=== PATIENT | male | born 1980 | race African-American/Black ===

== ENCOUNTER 2021-11-20 16:33 | Observation (INO) ==
[2021-11-20] MEDS ORDERED: FAMOTIDINE 20MG IV PUSH 20 MG/5 ML SYR IV STA (17:06)
[2021-11-20] MEDS ORDERED: SODIUM CHLORIDE 0.9% 1000ML 1,000 ML IV ONE (17:06)
--- NOTE | 2021-11-20 17:11 | Emergency Department Note ---
Impression & Plan Incarcerated left inguinal hernia, Recurrent inguinal hernia of left side with obstruction ED Provider Note NAME: FABIOLA REYNA AGE: 41 SEX: M ARRIVES VIA: Walk-In INFORMANT: Patient ED PROVIDER(S): Erick Bonner MD CHIEF COMPLAINT: Abdominal pain, Referred. PLAN: Disposition: Admit MEDICAL DECISION MAKING: The patient is a pleasant 41-year-old gentleman, current correction inmate at [facility], with a past medical history of a left inguinal hernia repair in 2016 per his report who presents to the emergency department for evaluation of persistent abdominal pain and nausea with constipation that has evolved over the past several weeks. Patient reports couple weeks ago he had fevers with nausea and vomiting but tested negative for COVID-19. He reports since his illness he has had continued burning sensation which he attributes to acid reflux. He has been started on Pepcid which he reports relieves his pain but notices when he stops taking it that the pain returns. He reports he has been moving his bowels at most every 4 days and prior to the onset of the symptoms over the past month he used to go daily. He denies any cough, congestion, chest pain, shortness of breath. On arrival the patient is well-appearing in no acute distress, afebrile stable vital signs. His abdomen is benign. He has a large left inguinal hernia that is soft and nontender but unable to be reduced. WBC, H/H and platelets within normal limits. Chemistry without metabolic acidosis. Electrolytes and LFTs unremarkable. Lipase is not elevated. CT of the abdomen pelvis demonstrates evidence of large bowel obstruction secondary to the patient's left hernia. I did reevaluate the patient who denies any significant pain at this time. I did attempt to reduce the hernia with the patient in Trendelenburg position with moderate success though unable to completely reduce the hernia. Case was discussed with Dr. De La Paz, general surgery on-call. Appreciate consultation. Upon his evaluation plan will be for admission for or tomorrow. Triage Nursing notes reviewed and agree them. Prior medical records reviewed Vital Signs: reviewed and remarkable for no significant abnormalities Differential diagnosis: Appendicitis, testicular torsion, infections, diverticulitis, UTI, obstruction, mesenteric ischemia, aortic pathology, inflammatory bowel disease, renal colic, PUD, pancreatitis, biliary pathology, hernia, volvulus, constipation, as well as other pathologies. ER treatment provided: See below. Diagnostics interpreted by me: Cardiac Monitoring: An order for continuous cardiac monitoring was placed and demonstrated normal sinus rhythm, 64 bpm, no ectopy. Laboratory studies: See below Imaging studies: See below Consultation(s): Dr. De La Paz, general surgery on-call. HPI: The patient is a pleasant 41-year-old gentleman, current correction inmate at [facility], with a past medical history of a left inguinal hernia repair in 2016 per his report who presents to the emergency department for evaluation of persistent abdominal pain and nausea with constipation that has evolved over the past several weeks. Patient reports couple weeks ago he had fevers with nausea and vomiting but tested negative for COVID-19. He reports since his illness he has had continued burning sensation which he attributes to acid reflux. He has been started on Pepcid which he reports relieves his pain but notices when he stops taking it that the pain returns. He reports he has been moving his bowels at most every 4 days and prior to the onset of the symptoms over the past month he used to go daily. He denies any cough, congestion, chest pain, shortness of breath. ROS: See above HPI for pertinent positives & negatives. A total of 10 systems reviewed and were otherwise negative. VITALS:See Below PHYSICAL EXAMINATION: GENERAL: Awake, alert, well-appearing, in no distress HENT: Normocephalic, atraumatic. Oropharynx unremarkable. EYES: Normal conjunctiva. Sclera non-icteric. NECK: Supple. No nuchal rigidity. FROM. No JVD. RESPIRATORY: Clear to auscultation. CARDIAC: Regular rate, normal rhythm. Extremities warm and well perfused. Pulses equal. ABDOMEN: Soft, non-distended. No tenderness to palpation. No rebound or guarding. Large left inguinal hernia that is soft and nontender but unable to be reduced. RECTAL: Deferred. MUSCULOSKELETAL: Chest examination reveals no tenderness. The back is symmetrical on inspection without obvious abnormality. There is no CVA tenderness to palpation. No joint edema. LOWER EXTREMITIES: Calves are equal size bilaterally and non-tender. No edema. No discoloration. NEURO: Normal sensorium. No sensory or motor deficits noted. SKIN: No rash or jaundice noted. Erick Bonner MD Past Med/Surg History Medical History Inguinal hernia Surgical History H/O inguinal hernia repair Family History Other Family history non-contributory Social History Smoking Status: Former smoker Feels Safe at Home: Yes Allergies Allergies Allergy/AdvReac Type Severity Reaction Status Date / Time ampicillin Allergy Mild childhood Verified 11/20/21 17:52 reactions Home Meds Home Medications Medication Instructions Recorded Confirmed famotidine 20 mg tablet 20 mg PO DAILY 11/20/21 11/20/21 Results & Data (ED) Vital Signs Vital Signs - 24 hr 11/20/21 16:40 11/20/21 17:06 11/20/21 19:29 Temperature 36.4 C L Temperature Source Oral Pulse Rate 64 Pulse Rate [Right Finger] 58 L Pulse Rhythm Regular Pulse Strength Normal Respiratory Rate 20 18 Respiratory Effort / Characteristics Non-Labored Spontaneous Non-Labored Spontaneous Respiratory Depth Normal Normal Respiratory Pattern Regular Regular Blood Pressure 161/105 H Blood Pressure [Right Arm] 165/90 H Blood Pressure Mean 123 Blood Pressure Mean [Right Arm] 115 Blood Pressure Position Sitting Blood Pressure Position [Right Arm] Lying Pulse Oximetry 98 97 96 Oxygen Delivery Method Room Air Room Air Room Air Sepsis Recent Fever Within 48 Hours No Sepsis New/Unexplained Change in Mental Status No Sepsis Action Taken by Nursing No Action Required 11/20/21 21:00 11/20/21 23:05 Temperature Temperature Source Pulse Rate Pulse Rate [Right Finger] 60 50 L Pulse Rhythm Pulse Strength Respiratory Rate 18 18 Respiratory Effort / Characteristics Non-Labored Spontaneous Non-Labored Spontaneous Respiratory Depth Normal Normal Respiratory Pattern Regular Regular Blood Pressure Blood Pressure [Right Arm] 134/75 125/71 Blood Pressure Mean Blood Pressure Mean [Right Arm] 94 89 Blood Pressure Position Blood Pressure Position [Right Arm] Lying Lying Pulse Oximetry 98 98 Oxygen Delivery Method Room Air Room Air Sepsis Recent Fever Within 48 Hours Sepsis New/Unexplained Change in Mental Status Sepsis Action Taken by Nursing Laboratory Data Attestation: I reviewed the patient's lab results. Result diagrams: 11/20/21 17:01 11/20/21 17:01 Lab Results 03/10/22 03/10/22 03/10/22 Range/Units 17:01 17:01 21:20 WBC 6.82 (4.8-10.8) K/uL RBC 4.61 L (4.7-6.1) M/uL Hgb 15.0 (14.0-18.0) g/dL Hct 43.5 (42-52) % MCV 94.4 (80-100) fL MCH 32.5 (25-34) pg MCHC 34.5 (32-36) g/dL RDW Std Deviation 42.6 (36.4-46.3) fL RDW Coeff of Denia 12.4 (11.5-14.5) % Plt Count 309 (130-400) K/uL MPV 8.6 (7.4-10.4) fL Immature Gran % (Auto) 0.1 % Neut % (Auto) 56.4 % Lymph % (Auto) 34.3 % Mower % (Auto) 8.8 % Eos % (Auto) 0.3 % Baso % (Auto) 0.1 % Neut # (Auto) 3.84 (1.4-6.5) K/uL Lymph # (Auto) 2.34 (1.2-3.4) K/uL Mower # (Auto) 0.60 H (0.11-0.59) K/uL Eos # (Auto) 0.02 (0-0.5) K/uL Baso # (Auto) 0.01 (0-0.2) K/uL Immature Gran # (Auto) 0.01 (0.00-0.02) K/uL Sodium 138 (136-145) mmol/L Potassium 4.0 (3.5-5.1) mmol/L Chloride 105 (98-107) mmol/L Carbon Dioxide 28 (21-32) mmol/L Anion Gap 5 (3-11) BUN 14 (6-23) mg/dl Creatinine 1.23 (0.6-1.4) mg/dl Est Cr Clr Drug Dosing 103.5 ml/min Est GFR ( Amer) 85.2 ml/min Est GFR (Non-Af Amer) 73.5 ml/min BUN/Creatinine Ratio 11.4 (10-20) Glucose 91 (70-99(Fasting)) mg/dl Calcium 8.7 (8.5-10.1) mg/dl Total Bilirubin 0.3 (0.2-1.0) mg/dl Direct Bilirubin 0.1 (0-0.2) mg/dl AST 12 L (13-39) U/L ALT 32 (7-52) U/L Alkaline Phosphatase 64 (34-104) U/L Total Protein 6.7 (6.0-8.3) gm/dl Albumin 4.2 (3.4-5.0) gm/dl Globulin 2.5 (2.5-4.0) gm/dl Albumin/Globulin Ratio 1.7 (0.9-2) Lipase 14 (11-82) U/L SARS-CoV-2, RNA, NAAT NEGATIVE (NEGATIVE) Administered Medications Discontinued Medications Sodium Chloride (Nss 1000ml) 1,000 mls @ 999 mls/hr IV .Q1H1M ONE Stop: 11/20/21 18:06 Last Infusion: 11/20/21 18:33 Dose: 0 mls/hr Documented by: [id number] Admin: 11/20/21 17:31 Dose: 999 mls/hr Documented by: [id number] Famotidine (Pepcid 20mg Iv Push) 20 mg in 5 mls @ 2.5 mls/min IV NOW STA Stop: 11/20/21 17:07 Last Admin: 11/20/21 17:31 Dose: 2.5 mls/min Documented by: [id number] Ioversol (Optiray 320 100ml) 95 ml IV ONCE ONE Stop: 11/20/21 19:07 Last Admin: 11/20/21 19:06 Dose: 1 ml Documented by: [id number] Imaging Data Radiologist's Impression: Abdomen/Pelvis CT 11/20/21 17:[address] WITH IV CONTRAST CT DOSE: 628.89 mGy.cm HISTORY: Generalized abdominal pain, nausea, constipation TECHNIQUE: Multiaxial CT images of the abdomen and pelvis were performed following the use of intravenous contrast. A dose lowering technique was utilized adhering to the principles of ALARA. COMPARISON STUDY: None. FINDINGS: The lung bases are clear. No pneumoperitoneum. No pneumatosis. No fractures within the visualized osseous structures. There is a left inguinal hernia containing a segment of the proximal sigmoid colon. The colon proximal to this hernia is dilated and filled with gas and fluid. Therefore, this likely represents a transition point for the large bowel obstruction. There appears a mild edema/inflammatory change within the decompressed segment of proximal sigmoid colon within the left inguinal hernia. This is likely due to the incarcerated hernia. Early strangulation is considered less likely but not entirely excluded. Therefore, surgical consultation recommended. The liver, gallbladder, pancreas, spleen, adrenal glands, and right kidney are unremarkable. There is a 9 mm hypodense lesion within the left kidney which is technically too small to characterize but favors a cyst. The main portal vein is patent. A few mildly distended gas and fluid-filled loops of small bowel. This is also likely secondary to the large bowel obstruction. The major mesenteric vessels appear patent. No retroperitoneal lymphadenopathy. Normal caliber abdominal aorta. IMPRESSION: 1. Large bowel obstruction secondary to a left inguinal hernia which contains a short segment of the proximal sigmoid colon. 2. There appears a mild edema/inflammatory change within the decompressed segment of proximal sigmoid colon within the left inguinal hernia. This is lik néstor due to the incarcerated hernia. Early strangulation is considered less likely but not entirely excluded. Therefore, surgical consultation recommended. ACT 112: Negative or not required by law. Electronically signed by: Tim Babb M.D. 11/20/2021 7:23 PM Discharge Plan Visit Data Chief Complaint: GI Assessment Stated Complaint: STOMACH ISSUES, "ACID BUILDUP" BLOATING ED Provider: Erick Bonner Discharge Problem: Incarcerated left inguinal hernia, Recurrent inguinal hernia of left side with obstruction Forms Stand Alone Forms: Secure Command Prescriptions Prescriptions: No Action famotidine 20 mg Tablet 20 mg PO DAILY RF: 0 Referrals Referrals: Kan SANCHES [Primary Care Provider] -
[2021-11-20 17:14] LABS: Basophils # (auto) 0.01 K/uL (0-0.2); Basophils % (auto) 0.1 %; Eosinophils # (auto) 0.02 K/uL (0-0.5); Eosinophils % (auto) 0.3 %; Hematocrit (blood only) 43.5 % (42-52); Immature Granulocytes # (auto) 0.01 K/uL (0.00-0.02); Immature Granulocytes % (auto) 0.1 %; Lymphocytes # (auto) 2.34 K/uL (1.2-3.4); Lymphocytes % (auto) 34.3 %; Mean Corpuscular Hemoglobin 32.5 pg (25-34); Mean Corpuscular Hgb Conc 34.5 g/dL (32-36); Mean Corpuscular Volume 94.4 fL (80-100); Mean Platelet Volume 8.6 fL (7.4-10.4); Monocytes % (auto) 8.8 %; Neutrophils # (auto) 3.84 K/uL (1.4-6.5); Neutrophils % (auto) 56.4 %; Platelet Count 309 K/uL (130-400); RDW Coefficient of Variation 12.4 % (11.5-14.5); RDW Standard Deviation 42.6 fL (36.4-46.3); Red Blood Count 4.61 M/uL (4.7-6.1); White Blood Count 6.82 K/uL (4.8-10.8)
[2021-11-20 18:43] LABS: Albumin Globulin Ratio 1.7 (0.9-2); Albumin Level 4.2 gm/dl (3.4-5.0); BUN Creatinine Ratio 11.4 (10-20); Bilirubin Direct 0.1 mg/dl (0-0.2); Bilirubin,Total 0.3 mg/dl (0.2-1.0); Calcium 8.7 mg/dl (8.5-10.1); Creatinine Clr Calc Pharmacy 103.5 ml/min; Est GFR (African American) 85.2 ml/min; Est GFR (Non-African American) 73.5 ml/min; Globulin 2.5 gm/dl (2.5-4.0); Total Protein 6.7 gm/dl (6.0-8.3)
[2021-11-20] MEDS ORDERED: OPTIRAY 320 100ml IV ONE (19:06)
--- NOTE | 2021-11-20 19:24 | CT Scan Report ---
ABDOMEN AND PELVIS CT WITH IV CONTRAST CT DOSE: 628.89 mGy.cm HISTORY: Generalized abdominal pain, nausea, constipation TECHNIQUE: Multiaxial CT images of the abdomen and pelvis were performed following the use of intrave nous contrast. A dose lowering technique was utilized adhering to the principles of ALARA. COMPARISON STUDY: None. FINDINGS: The lung bases are clear. No pneumoperitoneum. No pneumatosis. No fractures within the visu alized osseous structures. There is a left inguinal hernia containing a segment of the proximal sigmo id colon. The colon proximal to this hernia is dilated and filled with gas and fluid. Therefore, this likely represents a transition point for the large bowel obstruction. There appears a mild edema/inf lammatory change within the decompressed segment of proximal sigmoid colon within the left inguinal h ernia. This is likely due to the incarcerated hernia. Early strangulation is considered less likely b ut not entirely excluded. Therefore, surgical consultation recommended. The liver, gallbladder, pancr eas, spleen, adrenal glands, and right kidney are unremarkable. There is a 9 mm hypodense lesion with in the left kidney which is technically too small to characterize but favors a cyst. The main portal vein is patent. A few mildly distended gas and fluid-filled loops of small bowel. This is also likely secondary to the large bowel obstruction. The major mesenteric vessels appear patent. No retroperito usha lymphadenopathy. Normal caliber abdominal aorta. IMPRESSION: 1. Large bowel obstruction secondary to a left inguinal hernia which contains a short segment of the proximal sigmoid colon. 2. There appears a mild edema/inflammatory change within the decompressed segment of proximal sigmoid colon within the left inguinal hernia. This is likely due to the incarcerated hernia. Early strangul ation is considered less likely but not entirely excluded. Therefore, surgical consultation recommend ed. ACT 112: Negative or not required by law. Electronically signed by: Tim Babb M.D. 11/20/2021 7:23 PM
--- NOTE | 2021-11-20 21:49 | History & Physical Report ---
Date of Service November 20, 2021 Assessment & Plan (1) Incarcerated left inguinal hernia: (2) Recurrent inguinal hernia of left side with obstruction: Plan: Currently in no acute distress however he does show signs of a partial large bowel obstruction. Will admit admit him to the hospital for symptom control and IV fluids. Because of it being recurrent I am going to offer him a laparoscopic repair of recurrent left inguinal hernia with mesh. We discussed bleeding, infection, injury to other organs such as ureter bowel bladder etc., DVT, PE, AK, CVA, chronic pain afterwards etc. Following this I answered his questions he is agreeable. We will admit him tonight with plans for laparoscopic repair of recurrent left inguinal hernia with mesh tomorrow. History of Present Illness Primary Care Provider: VERÓNICA kaya 41-year-old inmate from a local correctional facility. In 2015 he underwent an open left inguinal hernia repair at [facility]. About a year after that he began having a bulge and discomfort. Over the past 3 weeks it has worsened. He has had difficulty having bowel movements and worsening lower abdominal discomfort. He presented to the emergency room today because of these issues. He denies nausea vomiting. His last bowel movement was yesterday. Allergies Allergy/AdvReac Type Severity Reaction Status Date / Time ampicillin Allergy Mild childhood Verified 11/20/21 17:52 reactions Home Medications Medication Instructions Recorded Confirmed Type famotidine 20 mg tablet 20 mg PO DAILY 11/20/21 11/20/21 History Past Med/Surg History Social History Smoking Status: Former smoker Feels Safe at Home: Yes Review of Systems Review of Systems: All systems reviewed & are unremarkable except as noted in HPI & below Physical Exam Constitutional: WD/WN, vitals as above no acute distress and not ill appearing Eyes: PERRL, conjunctivae normal, anicteric sclerae EOM intact bilaterally ENMT: external ear and nose normal, oropharynx normal Ears: no hearing impairment Neck: trachea midline, no thyromegaly Respiratory: normal respiratory effort; no respiratory distress and does not use accessory muscles Cardiovascular: Rate/Rhythm: regular rate and regular rhythm Gastrointestinal (Abdomen): Soft. Obvious large incarcerated left inguinal hernia. Nonreducible. Right side feels solid. Penis and testicles are normal. Old left inguinal incision intact. Skin: no rashes, warm and dry Psychiatric: Orientation: alert, oriented x 3 and cooperative Results & Data Results & Data ([facility]) Vital Signs (Past 12 Hours) Vital Signs Temp Pulse Pulse Resp BP BP Pulse Ox 11/20/21 21:00 60 18 134/75 98 11/20/21 19:29 58 L 18 165/90 H 96 11/20/21 17:06 97 11/20/21 16:40 36.4 C L 64 20 161/105 H 98 Code Status & VTE Plan VTE Prophylaxis Plan VTE Prophylaxis will be ordered: Yes PG Care Time/CCT Total # of Minutes Spent Total Time Spent with Patient: Total time spent is greater than 50% in coordination of care (as documented) at patient's floor/unit and/or counseling patient: Coding Level of Care Code INT OBSERVATION CARE 70M LVL 3 Diagnoses Incarcerated left inguinal hernia K40.30 Recurrent inguinal hernia of left side with obstruction K40.31
[2021-11-21] MEDS ORDERED: IBUPROFEN 600 MG TAB PO PRN (00:06)
[2021-11-21] MEDS: LACTATED RINGER'S 1,000 ML IV SCH ×2 (00:45→08:00)
[2021-11-21 06:37] LABS: Appearance Urine Clear (Clear); Bilirubin Urine Negative (Negative); Blood Urine Negative (Negative); Color Urine Yellow; Glucose Urine UA Negative (Negative); Ketones Urine Trace (Negative); Leukocyte Esterase Urine Negative (Negative); Nitrite Urine Negative (Negative); Protein Urine Negative (Negative); Specific Gravity Urine 1.041 (1.000-1.030); Urobilinogen Urine Negative (Negative)
--- NOTE | 2021-11-21 08:18 | Anesthesiology Consultation ---
Date of Service November 21, 2021 Assessment & Plan (1) Encounter for pre-operative examination: Chart Review Chart Review: Acceptable Risk for Surgery and Patient NOT seen in Pre Admission Testing Consults Requested none History Surgery Operation Date: 11/21/21 07:00 Proposed Procedures p Laparoscopic Inguinal Hernia Repair - Shawn De La Paz, Height/Weight Height: 6 ft 1 in Weight: 104 kg Allergies Allergy/AdvReac Type Severity Reaction Status Date / Time ampicillin Allergy Mild childhood Verified 11/20/21 17:52 reactions Medications Home Medications Medication Instructions Recorded Confirmed Last Taken famotidine 20 mg tablet 20 mg PO DAILY 11/20/21 11/20/21 Unknown Active Medications Generic Name Dose Route Start Last Admin Trade Name Freq PRN Reason Stop Dose Admin Lactated Ringer's 1,000 mls @ 125 mls/hr 11/21/21 00:06 11/21/21 08:00 Lr IV 12/21/21 00:05 125 mls/hr .Q8H AMARI Administration Past Medical History Medical History Inguinal hernia Past Family History Family History Other Family history non-contributory Past Surgical History Surgical History H/O inguinal hernia repair Social History Smoking Status: Never smoker Hx Alcohol Use: No Hx Substance Use: No substance use type: does not use Physical Exam Vital Signs Last Vital Signs Temp 36.7 C 11/21/21 07:49 Pulse 53 L 11/21/21 07:49 Resp 16 11/21/21 07:49 BP 122/70 11/21/21 07:49 Pulse Ox 97 11/21/21 07:49 Testing Laboratory Results 11/20/21 17:01 11/20/21 17:01 Urine Color Yellow 11/21/21 05:45 Urine Appearance Clear (Clear) 11/21/21 05:45 Urine pH 7.0 (4.5-7.5) 11/21/21 05:45 Ur Specific Langley 1.041 (1.000-1.030) H 11/21/21 05:45 Urine Protein Negative (Negative) 11/21/21 05:45 Urine Glucose (UA) Negative (Negative) 11/21/21 05:45 Urine Ketones Trace (Negative) H 11/21/21 05:45 Urine Nitrite Negative (Negative) 11/21/21 05:45 Ur Leukocyte Esterase Negative (Negative) 11/21/21 05:45
[2021-11-21] MEDS ORDERED: PROPOFOL IV EMULSION 10 MG/ML 20 ML VIAL IV ONE (09:09)
[2021-11-21] MEDS ORDERED: ROCURONIUM BROMIDE 10 MG/ML 5 ML VIAL IV ONE (09:09)
[2021-11-21] MEDS ORDERED: LIDOCAINE 2% 2 ML VIAL/AMP(20MG/ML) INFIL ONE (09:09)
[2021-11-21] MEDS ORDERED: DEXAMETHASONE SOD INJ 4 MG/ML VIAL ONE (09:09)
[2021-11-21] MEDS ORDERED: SUCCINYLCHOLINE CHLORIDE 20 MG/ML 10 ML VIAL IV ONE (09:09)
[2021-11-21] MEDS ORDERED: ONDANSETRON INJ 2 MG/ML 2 ML VIAL ONE (09:09)
[2021-11-21] MEDS ORDERED: fentaNYL citrate 100 MCG/2 ML VIAL ONE ×2 (09:10→12:09)
[2021-11-21] MEDS ORDERED: MIDAZOLAM HCL 1 MG/ML 2ML VIAL ONE (09:10)
--- NOTE | 2021-11-21 09:47 | History & Physical Bridge Note ---
Date of Service November 21, 2021 History & Physical Bridge Note I have examined the patient, reviewed the History & Physical and in the interval since the performance of the History & Physical I have noted the following changes of clinical significance: no changes noted
[2021-11-21] MEDS ORDERED: ATROPINE SULFATE 0.1 MG/ML 10ML SYR IV PRN (10:04)
[2021-11-21] MEDS ORDERED: HYDROmorphone INJ 1 MG/ML SYRINGE IV PRN (10:04)
[2021-11-21] MEDS ORDERED: fentaNYL citrate 100 MCG/2 ML VIAL IV PRN (10:04)
[2021-11-21] MEDS ORDERED: ONDANSETRON INJ 2 MG/ML 2 ML VIAL IV PRN ×2 (10:04→13:55)
[2021-11-21] MEDS ORDERED: PROMETHAZINE HCL 12.5 MG in SODIUM CHLORIDE 0.9% 50 ML IV PRN (10:04)
[2021-11-21] MEDS ORDERED: ePHEDrine sulfate 50 MG/ML AMP IV PRN (10:04)
[2021-11-21] MEDS ORDERED: BUPIVACAINE/EPINEPHRINE 0.25% 1:200,000 30 ML VIAL ONE (10:10)
[2021-11-21] MEDS ORDERED: CLINDAMYCIN 900 MG in DEXTROSE 5% 50 ML IV SCH (10:45)
[2021-11-21] MEDS ORDERED: NEOSTIGMINE METHYLSULFATE 1 MG/ML 10ML VIAL ONE (12:30)
[2021-11-21] MEDS ORDERED: GLYCOPYRROLATE 0.2 MG/ML VIAL ONE (12:30)
--- NOTE | 2021-11-21 12:31 | Operative Report ---
PG Post Operative Report Pre & Post Diagnosis Operation Date: 11/21/21 07:00 Pre-Op Diagnosis: Recurrent Incarcerated Hernia Left Inguinal Post-Op Diagnosis: Recurrent Incarcerated Hernia Left Inguinal;adhesions;incidental enterotomy I identified the patient and participated in the time-out.: Yes Procedure Operation Date: 11/21/21 07:00 Actual Procedures p Laparoscopic Repair of Recurrent inguinal hernia with mesh, extensive enterolysis, repair of enterotomy(Left) - Shawn De La Paz DO Surgeon Shawn De La Paz DO Social Media Marketing Analyst darío Stallworth Estimated Blood Loss 10 Findings Consistent with Post-Op Diagnosis Specimens none Description of Procedure After informed consent was obtained the patient was taken to the operating room and placed in supine position. After successful intubation a Fagan catheter was placed sterilely. The abdomen was shaved and sterilely prepped and draped in usual fashion. A supraumbilical incision was made with an 11 blade scalpel. This was carried down through the soft tissue using cautery. The anterior rectus fascia was opened using cautery and two #0 Vicryl stay sutures were plac ed. Peritoneum was elevated using hemostats and incised under direct vision using Metzenbaum scissor. A finger sweep was performed. 12 mm desouza trocar was placed and the abdomen was insufflated to 20 mmHg. The patient was placed in a Trendelenburg position. The laparoscope was inserted and the abdomen examined 360 degrees. A right lower quadrant 5 mm port which would later be converted to a 12 mm port was placed as well as a right mid abdominal 5 mm port and eventually a left mid abdominal 5 mm port. There was an incarcerated recurrent left inguinal hernia with a loop of sigmoid colon. This was tightly adhesed. We put firm pressure externally as well as gentle traction internally and was able to reduce some of the preperitoneal fat as well as some of the hernia sac. Eventually we were able to divide the hernia sac using the harmonic scalpel. However during reduction there was a small enterotomy made in the sigmoid colon. There was no spillage. Because I was able to control any soilage I decided to close the enterotomy. 3-0 Vicryl was used to place a stay stitch on either corner of the enterotomy. A ViOptix cartridge linear stapler was then used to close the enterotomy. The enterotomy closure appear to be intact with no evidence of ischemia and no narrowing on the lumen. We then continued to take down the hernia sac and reduce the remainder of the hernia. Because the enterotomy I decided to use a Vicryl mesh rather than a permanent mesh. A 15 cm x 15 cm Vicryl mesh was placed in the abdomen and unrolled. It was placed over the hernia defect such that it overlapped for several centimeters in all directions. We used a protack device to secure it. Several tacks were placed above the iliopubic tract. I made sure to be able to palpate the tacker before firing it. We also put 1 tack in the pubic bone. The mesh laid flat and tension-free. We thoroughly irrigated the entire lower abdomen and pelvis. There was adequate hemostasis and no evidence of other abnormalities. A 10 flat Momo-Calderón drain was placed into the lower abdomen and over the pelvic brim and brought out through one of the port sites and secured the skin using 0 Vicryl. All the trochars were removed and the abdomen was desufflated. The fascia of the camera port was closed using 0 Vicryl in [id number] fashion. Wounds were all irrigated closed using 4-0 Monocryl. Marcaine with epinephrine was injected around them for postoperative analgesia. A drain sponge as well as Dermabond glue was used for dressings. Patient was awakened extubated and transferred to recovery in stable condition. My physician corporate law assistant was present for the entire case. He was instrumental in running the camera as well as exposure throughout my dissection assistance with the repair itself as well as with wound closure and dressing placement. I attest to the content of the Intraoperative Record and any orders documented therein. Any exceptions are noted below.
[2021-11-21] MEDS ORDERED: MoRPHine SULFATE 4 MG/ML 1 ML CARP\\VIAL IV PRN (13:55)
[2021-11-21] MEDS ORDERED: D5W AND 1/2NSS + 20MEQ KCL 20 MEQ/1,000 ML BAG IV SCH (13:55)
--- NOTE | 2021-11-21 14:30 | Anesthesiology Progress Note ---
Date of Service November 21, 2021 Anesthesia Post Procedure Vital Signs Vital Signs: Temp Pulse Pulse Resp BP BP Pulse Ox 11/21/21 14:00 37.4 C 67 18 132/87 98 11/21/21 13:40 58 L 16 126/79 97 11/21/21 13:30 37.1 C 59 L 14 132/78 97 11/21/21 13:20 37.1 C 57 L 16 130/78 97 11/21/21 13:10 37.1 C 53 L 15 134/86 98 11/21/21 13:00 37.1 C 55 L 15 135/79 97 11/21/21 12:50 37.1 C 56 L 15 129/84 100 11/21/21 12:40 60 13 136/82 99 11/21/21 12:30 68 18 139/83 100 11/21/21 12:22 36.4 C L 18 131/74 100 11/21/21 09:41 36.7 C 59 L 18 132/82 98 11/21/21 07:49 36.7 C 53 L 16 122/70 97 11/20/21 23:50 37.2 C 67 18 140/85 96 11/20/21 23:05 50 L 18 125/71 98 11/20/21 21:00 60 18 134/75 98 11/20/21 19:29 58 L 18 165/90 H 96 11/20/21 17:06 97 11/20/21 16:40 36.4 C L 64 20 161/105 H 98 Transfer of Care Handoff Completed per policy Notes Mental Status: alert / awake / arousable and participated in evaluation Patient Amnestic to Procedure: Yes Nausea / Vomiting: adequately controlled Pain: adequately controlled Airway Patency, RR, SpO2: stable & adequate BP & HR: stable & adequate Hydration State: stable & adequate Anesthetic Complications: no major complications apparent and Pt Satisfied with anesthetic care
[2021-11-21] MEDS: D5W AND LACTATED RINGERS 1,000 ML IV SCH ×2 (14:41→23:21)
[2021-11-21] MEDS: metroNIDAZOLE 500 MG TAB PO SCH ×2 (14:44→20:58)
[2021-11-21] MEDS: MoRPHine SULFATE 2 MG/ML CARP IV PRN ×2 (14:44→17:17)
[2021-11-21] MEDS: CIPROFLOXACIN / D5W 400 MG/200 ML BAG IV SCH (15:51)
[2021-11-22] MEDS: CIPROFLOXACIN / D5W 400 MG/200 ML BAG IV SCH ×2 (04:59→16:57)
[2021-11-22] MEDS ORDERED: CLINDAMYCIN PHOS 900 MG/6 ML VIAL IV SCH (06:00)
[2021-11-22 07:21] LABS: Hematocrit (blood only) 38.6 % (42-52); Hemoglobin 13.8 g/dL (14.0-18.0); Immature Granulocytes # (auto) 0.02 K/uL (0.00-0.02); Immature Granulocytes % (auto) 0.2 %; Lymphocytes # (auto) 1.53 K/uL (1.2-3.4); Lymphocytes % (auto) 15.8 %; Mean Corpuscular Hemoglobin 33.2 pg (25-34); Mean Corpuscular Hgb Conc 35.8 g/dL (32-36); Mean Corpuscular Volume 92.8 fL (80-100); Mean Platelet Volume 8.3 fL (7.4-10.4); Monocytes # (auto) 1.38 K/uL (0.11-0.59); Monocytes % (auto) 14.2 %; Neutrophils # (auto) 6.76 K/uL (1.4-6.5); Neutrophils % (auto) 69.8 %; Platelet Count 249 K/uL (130-400); RDW Coefficient of Variation 12.4 % (11.5-14.5); RDW Standard Deviation 41.8 fL (36.4-46.3); Red Blood Count 4.16 M/uL (4.7-6.1); White Blood Count 9.69 K/uL (4.8-10.8)
[2021-11-22] MEDS: metroNIDAZOLE 500 MG TAB PO SCH ×3 (07:27→20:30)
[2021-11-22 07:46] LABS: Calcium 8.3 mg/dl (8.5-10.1); Creatinine Clr Calc Pharmacy 125.6 ml/min; Est GFR (African American) 109.4 ml/min; Est GFR (Non-African American) 94.4 ml/min
[2021-11-22] MEDS: D5W AND LACTATED RINGERS 1,000 ML IV SCH ×2 (09:18→16:56)
--- NOTE | 2021-11-22 10:41 | Surgery Progress Note ---
Date of Service November 22, 2021 Assessment & Plan (1) Incarcerated left inguinal hernia: Plan: POD 1 laparoscopic repair with repair of enterotomy stable WBC 9 had distention preop will start on clears seen with Dr. Conrad ambulate (2) Recurrent inguinal hernia of left side with obstruction: Admission and Anticipated Discharge Date Admission Date: November 20, 2021 Subjective no nausea, able to void, less pain today, hasn't had any morphine this AM Physical Exam Constitutional: WD/WN, vitals as above Gastrointestinal (Abdomen): Inspection/Auscultation: + abdomen distended (mild), + abdominal surgical incision (dry) and + abdominal surgical drain present (35 cc, mostly serous) Results & Data ([facility]) Vital Signs (Past 12 Hours) Vital Signs Temp Pulse Resp BP Pulse Ox 11/22/21 08:16 36.8 C 89 18 103/64 91 11/22/21 05:04 36.6 C 11/22/21 03:12 37.3 C 65 16 132/71 98 11/21/21 23:10 37.8 C H 76 16 117/71 98 PG Care Time/CCT Total # of Minutes Spent Total Time Spent with Patient: Total time spent is greater than 50% in coordination of care (as documented) at patient's floor/unit and/or counseling patient: Coding Level of Care Code None Diagnoses Incarcerated left inguinal hernia K40.30 Recurrent inguinal hernia of left side with obstruction K40.31
[2021-11-22] MEDS: MoRPHine SULFATE 2 MG/ML CARP IV PRN (17:01)
[2021-11-23] MEDS: D5W AND LACTATED RINGERS 1,000 ML IV SCH ×2 (04:18→14:09)
[2021-11-23] MEDS: CIPROFLOXACIN / D5W 400 MG/200 ML BAG IV SCH ×2 (04:18→16:54)
[2021-11-23 06:08] LABS: Basophils # (auto) 0.01 K/uL (0-0.2); Basophils % (auto) 0.1 %; Eosinophils # (auto) 0.03 K/uL (0-0.5); Eosinophils % (auto) 0.3 %; Hemoglobin 13.2 g/dL (14.0-18.0); Immature Granulocytes # (auto) 0.02 K/uL (0.00-0.02); Immature Granulocytes % (auto) 0.2 %; Lymphocytes % (auto) 11.6 %; Mean Corpuscular Hemoglobin 32.4 pg (25-34); Mean Corpuscular Hgb Conc 34.7 g/dL (32-36); Mean Corpuscular Volume 93.1 fL (80-100); Mean Platelet Volume 8.6 fL (7.4-10.4); Monocytes # (auto) 1.39 K/uL (0.11-0.59); Monocytes % (auto) 14.7 %; Neutrophils % (auto) 73.1 %; Platelet Count 229 K/uL (130-400); RDW Coefficient of Variation 12.4 % (11.5-14.5); RDW Standard Deviation 42.2 fL (36.4-46.3); Red Blood Count 4.08 M/uL (4.7-6.1); White Blood Count 9.45 K/uL (4.8-10.8)
[2021-11-23 06:30] LABS: BUN Creatinine Ratio 7.6 (10-20); Creatinine Clr Calc Pharmacy 136.5 ml/min; Est GFR (Non-African American) 104.4 ml/min; Potassium 3.8 mmol/L (3.5-5.1)
[2021-11-23] MEDS: metroNIDAZOLE 500 MG TAB PO SCH ×3 (08:34→20:48)
[2021-11-23] MEDS ORDERED: HYDROCODONE/ACETAMOPHEN 5/325MG TAB PO PRN ×2 (08:42)
--- NOTE | 2021-11-23 08:54 | Surgery Progress Note ---
Date of Service November 23, 2021 Assessment & Plan (1) Incarcerated left inguinal hernia: Plan: POD#2 laparoscopic repair with repair of enterotomy WBC 9.4, VSS Tolerating clears, passing some flatus... will advance to low fiber and he can pick and choose what he wants to eat THIERRY drain serosang, keep for now Pain improving, will order prn po pain meds OOB as tolerates Pt seen/examined with Dr. Conrad Admission and Anticipated Discharge Date Admission Date: November 20, 2021 Subjective Patient says pain is improving some. He is drinking small amounts of clear liquids, no n/v. Passing some flatus. Has been voiding. Physical Exam Physical Exam: awake/alert Constitutional: no acute distress Gastrointestinal (Abdomen): Inspection/Auscultation: + abdominal surgical incision (c/d/i) and + abdominal surgical drain present (serosang. 100cc) Percussion/Palpation: + abdomen tender (some hiro incisional discomfort) and abdomen soft Results & Data ([facility]) Vital Signs (Past 12 Hours) Vital Signs Temp Pulse Resp BP Pulse Ox 11/23/21 08:09 37.2 C 69 18 112/68 98 11/22/21 22:08 37.1 C 90 16 117/73 95 PG Care Time/CCT Total # of Minutes Spent Total Time Spent with Patient: Total time spent is greater than 50% in coordination of care (as documented) at patient's floor/unit and/or counseling patient: Coding Level of Care Code None Diagnoses Incarcerated left inguinal hernia K40.30
[2021-11-24] MEDS: D5W AND LACTATED RINGERS 1,000 ML IV SCH ×2 (02:26→09:51)
[2021-11-24] MEDS: CIPROFLOXACIN / D5W 400 MG/200 ML BAG IV SCH (03:59)
[2021-11-24] MEDS: metroNIDAZOLE 500 MG TAB PO SCH ×3 (07:40→21:10)
--- NOTE | 2021-11-24 08:57 | Surgery Progress Note ---
Date of Service November 24, 2021 Assessment & Plan (1) H/O inguinal hernia repair: Plan: POD 3 doing well awaiting bowel fx not quite ready for d/c. ambulate more today. Admission and Anticipated Discharge Date Admission Date: November 20, 2021 Subjective pt seen. feeling well. jocelyn diet. denies pain. +flatus. no bm yet. Physical Exam Physical Exam: alert. nad abd: soft. expected incisional tenderness. THIERRY serous. Results & Data ([facility]) Vital Signs (Past 12 Hours) Vital Signs Temp Pulse Resp BP Pulse Ox 11/24/21 07:43 36.6 C 62 16 109/67 98 11/23/21 22:33 37.2 C 66 16 113/72 97 PG Care Time/CCT Total # of Minutes Spent Total Time Spent with Patient: Total time spent is greater than 50% in coordination of care (as documented) at patient's floor/unit and/or counseling patient: Coding Level of Care Code None Diagnoses H/O inguinal hernia repair Z98.890; Z87.19
[2021-11-24] MEDS: CIPROFLOXACIN 500 MG TAB PO SCH (21:10)
[2021-11-25] MEDS: CIPROFLOXACIN 500 MG TAB PO SCH (08:13)
[2021-11-25] MEDS: metroNIDAZOLE 500 MG TAB PO SCH (08:13)
--- NOTE | 2021-11-25 08:23 | Surgery Progress Note ---
Date of Service November 25, 2021 Assessment & Plan (1) H/O inguinal hernia repair: Plan: Doing well. Okay for discharge. Instructions given. Follow-up in 1 to 2 weeks. Admission and Anticipated Discharge Date Admission Date: November 20, 2021 Subjective Patient seen. Feeling well. Had 3 bowel movements yesterday and tolerating a diet. He is afebrile. Physical Exam Physical Exam: Alert and oriented no acute distress All of his incisions are healing nicely. THIERRY is scant and serous Results & Data ([facility]) Vital Signs (Past 12 Hours) Vital Signs Temp Pulse Resp BP BP Pulse Ox 11/25/21 07:10 36.9 C 59 L 16 114/72 97 11/24/21 22:28 36.9 C 63 16 125/79 99 PG Care Time/CCT Total # of Minutes Spent Total Time Spent with Patient: Total time spent is greater than 50% in coordination of care (as documented) at patient's floor/unit and/or counseling patient: Coding Level of Care Code None Diagnoses H/O inguinal hernia repair Z98.890; Z87.19
--- NOTE | 2021-12-01 10:52 | Discharge Summary ---
Date of Service November 25, 2021 Admission HPI Per Admitting Provider 41-year-old inmate from a local correctional facility. In 2016 he underwent an open left inguinal hernia repair at [facility]. About a year after that he began having a bulge and discomfort. Over the past 3 weeks it has worsened. He has had difficulty having bowel movements and worsening lower abdominal discomfort. He presented to the emergency room today because of these issues. He denies nausea vomiting. His last bowel movement was yesterday. Principal Diagnosis Incarcerated left inguinal hernia, recurrent Discharge Exam Constitutional WD/WN, vitals as above Gastrointestinal (Abdomen) Inspection/Auscultation: + abdominal surgical incision (clean, dry); abdomen not distended Percussion/Palpation: abdomen soft Discharge Data Allergies Allergy/AdvReac Type Severity Reaction Status Date / Time ampicillin Allergy Mild childhood Verified 11/20/21 17:52 reactions Consultations 11/20/21 21:10 Consult General Surgery Stat 11/20/21 22:56 ED Decision to Admit Stat Procedures Performed Operation Date: 11/21/21 07:00 Actual Procedures p Laparoscopic Repair of Recurrent inguinal hernia with mesh, extensive enterolysis, repair of enterotomy(Left) - Shawn De La Paz, Ordered Studies 11/20/21 17:06 CT abd pelvis IV con only Stat Hospital Course (1) Recurrent inguinal hernia of left side with obstruction: 41 y/o male inmate brought to the ED for abdominal pain and left groin bulge. CT showed left inguinal hernia containing sigmoid colon. He was admitted to the surgical service overnight and taken to the operating room in the morning for laparoscopic repair. Enterotomy was repaired laparoscopically with LYNETTE. He was returned to the floor and kept NPO overnight. He was started on clear liquids on POD 1 and advanced over the next two days as bowel function returned. On POD 4 he was tolerating regular diet and having bowel movements. THIERRY drain was removed. He was stable for discharge back to the correctional facility. Total Time Total Time Spent Total Time Spent (In Minutes): 15 Discharge Plan Discharge Items Patient Disposition: Correctional Facility Reason For Visit: INCARCERATED HERNIA Discharge Diagnosis: laparoscopic inguinal hernia repair Activity: Per Instructions section Lifting: No more than 10 pounds Bathing Comment: may shower Exercise/Sports: Wait until after follow-up appointment Non-emergency contact: Surgeon Call non-emergency contact if: you have any medication questions, your symptoms worsen, your pain is not controlled, your pain is concerning for you, you have a fever, your temperature is above 101.5, your wound has increased redness, your wound has increased drainage and your wound pain has increased Follow-up/Referrals: Shawn De La Paz, DO [Surgeon] - (Please call to schedule follow up in clinic within 2 weeks) Kan SANCHES [Primary Care Provider] - Diet: Low Fiber Addtl Attending Provider Instructions: You may ice your groin on and off alternating every 20 minutes as needed to help with pain and swelling If your facility provides it you may take Tylenol #3 for moderate to severe pa in. Otherwise you may take Tylenol and/or Ibuprofen. Do not exceed the maximum amount of Acetaminophen within a 24 hour time period. Cover the wound where your drain was removed with dry 4x4 gauze and medical tape until it has healed and is no longer draining. Change dressing daily and as needed. Pending Studies at Discharge: No Skilled Items Patient informed of condition?: Yes DNR: No Discharge Level of Care: Other Communicable Disease: No Discharge Prognosis: Stable Lines: None Urinary Catheter: No Medications and DC Order Prescriptions: Continued famotidine 20 mg Tablet 20 mg PO DAILY RF: 0 Krames/Other Patient Handouts: Low-Fiber Diet Admission Data Admit Date/Time: 11/20/21 21:45 Attending Provider: Shawn De La Paz Admit Provider: Shawn De La Paz Primary Care Provider: Kan SANCHES Other Providers: Shawn De La Paz Other Interventions: Discharge Summary Assessment (RN) Last Done: 11/25/21 09:15 Coding Level of Care Code D/C DAY MANAGEMENT <30 MINS Diagnoses Recurrent inguinal hernia of left side with obstruction K40.31
== END 2021-11-25 11:00 ==
LOC: ED 16:33 → 3W 16:33